=== PATIENT | female | born 1965 | race Caucasian/White ===

== ENCOUNTER 2020-04-22 08:25 | Outpatient (CLI) | payer OTHER, SELFPAY ==
--- NOTE | ~2020-04-22 | MM_ITS ---
EXAMINATION: MM screening [facility] BI w juanito HISTORY: Screening TECHNIQUE: Craniocaudal and mediolateral oblique 3-D tomosynthesis images were obtained and synthetic 2-D images were generated. CAD analysis was submitted and interpreted. COMPARISON: 03/27/2019, 03/21/2018, 03/08/2017 bilateral digital screening mammogram examinations BREAST PARENCHYMAL COMPOSITION: The breasts are almost entirely fatty. FINDINGS: There is no evidence of suspicious mass, calcification, or architectural distortion to sugg est malignancy in either breast. There has been no suspicious interval change. IMPRESSION: 1. No mammographic evidence of malignancy. 2. Recommend routine screening mammography in one year. BI-RADS Category 1: Negative Reviewed, dictated and finalized at location A.
== END 2020-04-22 08:26 | disposition home or self-care (01) ==
LOC: ANHIMG 08:29
PROVIDERS: PCP Family Medicine; Visit Provider Obstetrics & Gynecology
DX: Z12.31 Encounter for screening mammogram for malignant neoplasm of breast (principal)
CPT/HCPCS: 77063; 77067

== ENCOUNTER 2021-05-05 09:40 | Outpatient (CLI) | payer OTHER, SELFPAY ==
--- NOTE | ~2021-05-05 | MM_ITS ---
EXAMINATION: MM screening [facility] BI w juanito HISTORY: Screening mammogram TECHNIQUE: Craniocaudal and mediolateral oblique 3-D tomosynthesis images were obtained and synthetic 2-D images were generated. CAD analysis was submitted and interpreted. COMPARISON: 04/22/2020, 03/27/2019, bilateral digital screening mammogram examinations BREAST PARENCHYMAL COMPOSITION: The breasts are almost entirely fatty. FINDINGS: There is no evidence of suspicious mass, calcification, or architectural distortion to sugg est malignancy in either breast. There has been no suspicious interval change. IMPRESSION: 1. No mammographic evidence of malignancy. 2. Recommend routine screening mammography in one year. BI-RADS Category 1: Negative Reviewed, dictated and finalized at location A.
== END 2021-05-05 09:41 | disposition home or self-care (01) ==
PROVIDERS: PCP Family Medicine; Visit Provider Obstetrics & Gynecology
DX: Z12.31 Encounter for screening mammogram for malignant neoplasm of breast (principal)
CPT/HCPCS: 77063; 77067

== ENCOUNTER → 2021-07-21 11:03 | Outpatient (CLI) | payer OTHER, SELFPAY ==
--- NOTE | ~2021-07-21 | XR_ITS ---
EXAMINATION: XR cervical spine min 6V DATE: 07/21/2021 11:39 INDICATION: Cervical radiculopathy. TECHNIQUE: 6 views of cervical spine were obtained. COMPARISON: None. FINDINGS: There is 6 degrees dextrocurvature of cervical spine. There is 2 mm retrolisthesis of C5 on C6. Vertebral body heights are normal. There is moderately decreased disc height at C5-C6 and mildly decreased disc height at C6-C7. There is multilevel mild facet joint osteoarthritis. There is modera te right neural foraminal stenosis at C5-C6 and mild left neural foraminal stenosis at C4-C5. There i s mild central canal stenosis at C5-C6. No prevertebral soft tissue swelling. IMPRESSION: 1. Moderate cervical spondylosis. Reviewed, dictated and finalized at location A. SHOP MANAGER
== END ==
PROVIDERS: PCP Family Medicine; Visit Provider Chiropractor
DX: M54.12 Radiculopathy, cervical region (principal); M47.812 Spondylosis without myelopathy or radiculopathy, cervical region
CPT/HCPCS: 72052

== ENCOUNTER → 2021-08-21 07:57 | Outpatient (CLI) | payer OTHER, SELFPAY ==
[2021-08-21 20:09] LABS: SARS-CoV-2 RNA PCR Positive
== END ==
PROVIDERS: PCP Family Medicine; Visit Provider Physician Assistant
DX: U07.1 COVID-19 (principal)
CPT/HCPCS: C9803; U0003; U0005

== ENCOUNTER 2022-06-29 10:37 | Outpatient (CLI) | payer OTHER, SELFPAY ==
--- NOTE | ~2022-06-29 | MM_ITS ---
EXAMINATION: MM screening [facility] BI w juanito HISTORY: Screening TECHNIQUE: Craniocaudal and mediolateral oblique 3-D tomosynthesis images were obtained and synthetic 2-D images were generated. CAD analysis was submitted and interpreted. COMPARISON: Comparison to multiple prior studies sequentially, with oldest reviewed study dated 03/08. BREAST PARENCHYMAL COMPOSITION: Breast composition is almost entirely fatty FINDINGS: There is no evidence of suspicious mass, calcification, or architectural distortion to sugg est malignancy in either breast. There has been no suspicious interval change. IMPRESSION: 1. No mammographic evidence of malignancy. 2. Recommend routine screening mammography in one year. BI-RADS Category 1: Negative Reviewed, dictated and finalized at location A. K SAFETY INSPECTOR
== END 2022-06-29 10:38 | disposition home or self-care (01) ==
PROVIDERS: PCP Family Medicine; Visit Provider Family Medicine
DX: Z12.31 Encounter for screening mammogram for malignant neoplasm of breast (principal)
CPT/HCPCS: 77063; 77067

== ENCOUNTER → 2022-10-04 09:40 | Outpatient (CLI) | payer OTHER, SELFPAY ==
--- NOTE | ~2022-10-04 | XR_ITS ---
EXAMINATION: XR chest 2V DATE: 10/04/2022 09:56 INDICATION: Cough TECHNIQUE: PA and lateral views of the chest are obtained. COMPARISON: None available FINDINGS: The lungs are free of acute opacities. No pleural effusion or pneumothorax. The cardiomedia stinal silhouette is normal. There is mild thoracic spondylosis. IMPRESSION: 1. No acute cardiopulmonary abnormality. Reviewed, dictated and finalized at location B. EAR LOGGING ENGINEER
== END ==
PROVIDERS: PCP Family Medicine; Visit Provider Family Medicine
DX: R05.9 Cough, unspecified (principal)
CPT/HCPCS: 71046

== ENCOUNTER → 2022-11-26 13:40 | Outpatient (CLI) | payer OTHER, SELFPAY ==
--- NOTE | ~2022-11-26 | XR_ITS ---
XR lumbar spine min 4V 11/26/2022 14:12 Indication: Lumbar spondylosis with myelopathy Procedure: 5 views of the lumbar spine Comparison: 05/15/2015 Findings: There is loss of disc height at all lumbar levels. Status post spinal fusion at L4-5 with p rosthetic disc device at this level. Disc narrowing and endplate degenerative change is progressed at L2-3, L4-5 and L5-S1. There is grade 1 spondylolisthesis at L5-S1. There is levoscoliosis. No acute fracture or traumatic malalignment. Impression: 1: Progression of severe lumbar spondylosis with interval posterior spinal fusion at L4-5. Reviewed, dictated and finalized at location L. Impression: 1: Progression of severe lumbar spondylosis with interval posterior spinal fusi on at L4-5.
== END ==
PROVIDERS: PCP Family Medicine; Visit Provider Family Medicine
DX: M47.16 Other spondylosis with myelopathy, lumbar region (principal); Z98.1 Arthrodesis status
CPT/HCPCS: 72110

== ENCOUNTER 2022-12-03 08:04 | Outpatient (CLI) | payer OTHER, SELFPAY ==
--- NOTE | ~2022-12-03 | US_ITS ---
EXAMINATION: US arterial ankle brachial ind DATE: 12/03/2022 08:57 INDICATION: Diabetic with hypertension presenting with right lower limb pain TECHNIQUE: Segmental pressures and plethysmographic and Doppler waveforms of the brachial and lower e xtremity arteries were obtained. COMPARISON: None. FINDINGS: Right and left brachial artery pressures of 170 mm Hg and 194 mm Hg, respectively, are concordant (no rmal difference <= 30 mmHg). The right ankle-brachial index (FABIO) is 1.01 (normal >= 0.9-1.0). The right great toe-brachial index (TBI) is 0.48 (normal >= 0.65). Arterial Doppler waveforms are biphasic with brisk systolic upstrokes at both right posterior tibial and dorsalis pedis arteries. The left FABIO is 0.97. The left TBI is 0.27. Arterial Doppler waveforms are biphasic with brisk systol ic upstrokes at both left posterior tibial and dorsalis pedis arteries. IMPRESSION: 1. Arterial occlusive disease with mildly decreased right and moderately decreased left TBIs. Reviewed, dictated and finalized at location A. IMPRESSION: 1. Arterial occlusive disease with mildly decreased right and moderately decrea sed left TBIs.
== END 2022-12-03 08:05 | disposition home or self-care (01) ==
PROVIDERS: PCP Family Medicine; Visit Provider Family Medicine
DX: I77.9 Disorder of arteries and arterioles, unspecified (principal); M79.604 Pain in right leg; M79.605 Pain in left leg
CPT/HCPCS: 93922

== ENCOUNTER 2023-09-10 08:56 | Outpatient (CLI) | payer OTHER, SELFPAY ==
--- NOTE | ~2023-09-10 | MM_ITS ---
EXAMINATION: MM screening [facility] BI w juanito HISTORY: Screening mammogram TECHNIQUE: Craniocaudal and mediolateral oblique 3-D tomosynthesis images were obtained and synthetic 2-D images were generated. CAD analysis was submitted and interpreted. COMPARISON: 06/29/2022, 05/05/2021, 04/22/2020 BREAST PARENCHYMAL COMPOSITION: The breasts are almost entirely fatty. FINDINGS: No suspicious mass, calcification, or architectural distortion are identified in either kush ast to suggest malignancy. There has been no suspicious interval change. IMPRESSION: 1. No mammographic evidence of malignancy. 2. Recommend routine screening mammography in one year. BI-RADS Category 1: Negative Reviewed, dictated and finalized at location A. OPERATIONS DIRECTOR
== END 2023-09-10 08:57 | disposition home or self-care (01) ==
PROVIDERS: PCP Family Medicine; Visit Provider Family Medicine
DX: Z12.31 Encounter for screening mammogram for malignant neoplasm of breast (principal)
CPT/HCPCS: 77063; 77067

== ENCOUNTER 2023-12-19 10:07 | Outpatient (CLI) | payer OTHER, SELFPAY ==
--- NOTE | ~2023-12-19 | MR_ITS ---
MRI of the lumbar spine Clinical History: Worsening right sciatica Technique: Axial T2-weighted images, and sagittal T1-weighted, T2-weighted, and STIR images were acqu ired. Following intravenous administration of 20 cc MultiHance gadolinium, T1-weighted fat-sat imagin g was performed in the axial and sagittal planes. COMPARISON: 09/06/2019 Findings: No acute fracture identified. Probable mild grade 1 anterolisthesis of L5 over S1. Osseous alignment overall is similar to prior exam otherwise. Patient is status post interval posterior fusio n of the left side from L4 to L5, and interbody fusion at the L4-L5 disc space. No suspicious bone ma rrow signal abnormality seen. At L1-L2, there is advanced degenerative disc narrowing. There is mild disc bulge with moderate to se milton facet arthropathy. No central canal stenosis. No definite neural foraminal narrowing. At L2-L3, there is severe degenerative disc narrowing. Disc bulge and advanced facet arthropathy resu lt in moderate to severe spinal canal stenosis/thecal sac compression. There is severe bilateral neur al foraminal narrowing, right worse than left. L3-L4, there is severe degenerative disc narrowing. Disc bulge and possible superimposed protrusion w ith severe facet arthropathy result in severe spinal canal stenosis/thecal sac compression. There is severe bilateral neural foraminal compromise. At L4-L5, no definite disc bulge or herniation seen. There is severe facet arthropathy. No central ca nal stenosis. There is probable moderate left neural foraminal narrowing and minimal right neural for aminal narrowing. At L5-S1, there is severe degenerative disc narrowing. There is central disc protrusion with severe f acet arthropathy. There is mild to moderate central canal stenosis. There is severe bilateral neural foraminal compromise. No significant paravertebral soft tissue abnormality identified. Impression: Severe degenerative spondylosis of lumbar spine, with multilevel severe neural foraminal narrowing, a s above. There is also severe spinal canal stenosis/thecal sac compression at L2-L3 and L3-L4. Please see details above. Status post interval left-sided posterior fusion from L4 to L5 with interbody fusion device at the L4 -L5 disc space. Reviewed, dictated and finalized at location M. Impression: Severe degenerative spondylosis of lumbar spine, with multilevel severe neural foraminal narrowing, as above. There is also severe spinal canal stenosis/theca l sac compression at L2-L3 and L3-L4. Please see details above. Status post interval left-sided posterior fusion from L4 to L5 with interbody f usion device at the L4-L5 disc space.
== END 2023-12-19 10:08 ==
PROVIDERS: PCP Chiropractor; Visit Provider Chiropractor
DX: Z98.1 Arthrodesis status (principal); M47.896 Other spondylosis, lumbar region
CPT/HCPCS: 72158; A9577

== ENCOUNTER 2024-10-09 07:58 | Outpatient (CLI) | payer OTHER, SELFPAY ==
--- NOTE | ~2024-10-09 | MM_ITS ---
EXAMINATION: MM screening [facility] BI w juanito HISTORY: Screening mammogram TECHNIQUE: Craniocaudal and mediolateral oblique 3-D tomosynthesis images were obtained and synthetic 2-D images were generated. CAD analysis was submitted and interpreted. COMPARISON: 09/10/2023, 06/29/2022, 05/05/2021 BREAST PARENCHYMAL COMPOSITION:Not Dense. There are scattered areas of fibroglandular density. FINDINGS: No suspicious mass, calcification, or architectural distortion are identified in either kush ast to suggest malignancy. There has been no suspicious interval change. IMPRESSION: No mammographic evidence of malignancy. Recommend routine screening mammography in one year. BI-RADS Category 1: Negative Reviewed, dictated and finalized at location . LATOR OPERATOR
--- OUTSIDE RECORDS SUMMARY | 2024-10-09 08:01 | XMS_ITS | Continuity of Care Document ---
[facility] Organization [facility] Address [address] [place] [address] Phone Care Team Providers Care Home Economics Expert Name Role Phone Arvind Adame MD Unavailable Unavailable Procedures Procedure Date INJECTION ANESTHETIC AND/OR STERIOD, TRANS EPIDURAL LUMB OR SACRAL,, SINGLE LEVE SURGICAL TRAY LOW OSMOLAR CONTRAST (200 TO 299 MG IODI NE) Triamcinolone Acetonide Injection, 10mg Advance Directives Directive Yes / No Effective Date File Name No Information Encounters Encounter Description Practice Location Reason(s) For Visit Diagnoses Date Provider Providers [facility] [address], [place], [place], [id number], [place] tel:[phone] [facility] No Information Deep Samuels. [address], [place], [id number], [place]. tel:[phone] Referring Provider: Kwaku Srivastava, [address], [place], [address]. tel:[phone] Family History Family Member Type Diagnosis Age At Onset No Information Payers Payer name Insurance type Covered republican ID Authoriza tion(s) [facility] [id number] Social History Type Description Quantity Date Captured Comments Sex Female Smoking Status No Information Chief Complaint And Reason For Visit No Information Reason For Referral Reason For Referral No Information History Of Present Illness Encounter Date Complaint History Of Prese nt Illness No Information Functional Status Date Functional Assessmen t No Information Instructions Date Instruction Additional Infor mation No Information Assessments Type Assessment Date No Information Patient Care Teams Name Effective Dates (start - stop) Status Members No Information
--- OUTSIDE RECORDS SUMMARY | 2024-10-09 08:01 | XMS_ITS | CONTINUITY OF CARE DOCUMENT ---
Author Name darion orlando Address Unknown Organization [facility] Address [address] [place] [address] Phone [phone] Care Team Providers Care Catheter Builder Name Role Phone Alfred KWON, Jay Jay Unavailable [phone] WAYNE KWON, SETH Unavailable [phone] Nahomi KWON, Sandhya Unavailable [phone] PROBLEMS Condition Status Date Provider Notes Pre-operative respiratory examination active 1 Jay Jay Simon MD Family History of Hypertension: active Cesar Simon MD Family History of CVA or Stroke: active Radha Simon MD Abnormal EKG active Jay Jay Simon MD Hypertension active Jay Jay Simon MD Fatigue active Jay Jay Simon MD Shortness of breath active Jay Jay sandoval MD Chest pain active Jay Jay Simon MD ENCOUNTERS Date Type Provider Location Encounter Diag nosis 1 - 1 In-person encounter Office Visit [facility] Pre-operative respiratory examinationFamily History of Hypertension:Family History of CVA or Stroke:Abnormal EKGHypertensionFatigueShortness of breathChest pain VITAL SIGNS Date Observation Value Provider Body Mass Index (Ratio) 43.71 kg/m2 Cesar Simon MD blood pressure, diastolic 90 mm[Hg] Derick Bejarano blood pressure, systolic 144 mm[Hg] Desire Bejarano oxygen saturation, oximetry 96 % Simran Mcenson respiratory rate E&M 18 /min Yandy Bejarano pulse rate 74 /min Simran pinzon weight E&M 239 [lb_av] Simran pinzon height E&M 62 [in_i] Simran pinzon ALLERGIES Allergy Name Onset Date Reaction Criticality Status PENICILLIN High Criticality active HISTORY OF MEDICATION USE Medication Status Instructions Dates Provider Indications Com ments VALSARTAN 320 MG ORAL TABLET active one tab by mouth once daily Simran Bejarano TRAMADOL HCL TABLET active 50 mg tab as needed Simran Bejarano CRESTOR 20 MG ORAL TABLET active ONE TAB. DAILY Simran Bejarano OMEGA-3 FISH OIL 1000 MG ORAL CAPSULE active One tab. daily Simran Bejarano LIDOCAINE PLUS 4 % EXTERNAL CREAM active as directed Simran Bejarano PROBIOTIC ACIDOPHILUS BEADS ORAL CAPSULE active 1 tab once daily Simran Bejarano INDAPAMIDE 2.5 MG ORAL TABLET active 1 tab once dily Simran Bejarano HYDRALAZINE HCL 10 MG ORAL TABLET active 1 tab once daily Simran Bejarano BENADRYL 25 MG ORAL CAPSULE active One tab. daily Simran Bejarano ASPIRIN ADULT LOW DOSE 81 MG ORAL TABLET DELAYED RELEASE active One Tab By Mouth Daily Simran Bejarano TYLENOL EXTRA STRENGTH 500 MG ORAL TABLET active 1 tab daily as needed Simran Bejarano SOCIAL HISTORY Date Observation Value Provider social history reviewed E&M revi ewed - no changes required Jay Jay Simon MD social history E&M S moking History: P karen has never smoked. Jay Jay Simon MD number of grandchildren Jay Jay Simon MD smoking status Never smoker Simran Wesley FAMILY HISTORY Family Member Condition Father Family History of CV A or Stroke: Mother Family History of Hy pertension: Mother Family History of Di abetes: INSURANCE PROVIDERS Payer name Policy type / Coverage type [place] red alliance party ID [employer] 9 [id number] ADVANCE DIRECTIVES Name Date DISCUSSED - NO DECISION MADE TREATMENT PLAN Date Name Performer Electrophysiology: O rders: C omplete Echo (CPT-14435) S tress Regadenoson (CPT-88915) X -Ray, Chest - Routine (CPT-72941) 9 9205 HIGH Complex (CPT-08533) Jay Jay Simon MD Electrophysiology: B P today: 144/90 Her updated medication list for this problem includes: Valsartan 320 Mg Oral Tablet (Valsartan) ..... One tab by mouth once daily Indapamide 2.5 Mg Oral Tablet (Indapamide) ..... 1 tab once dily Hydralazine Hcl 10 Mg Oral Tablet (Hydralazine hcl) ..... 1 tab once daily Aspirin Adult Low Dose 81 Mg Oral Tablet Delayed Release (Aspirin) ..... One tab by mouth daily Jay Jay Simon MD Electrophysiology: H er updated medication list for this problem includes: Valsartan 320 Mg Oral Tablet (Valsartan) ..... One tab by mouth once daily Indapamide 2.5 Mg Oral Tablet (Indapamide) ..... 1 tab once dily Aspirin Adult Low Dose 81 Mg Oral Tablet Delayed Release (Aspirin) ..... One tab by mouth daily Jay Jay Simon MD Electrophysiology:po or R wave progression in precordial, possible old anterior infarct. Jay Jay Simon MD Date Name X-Ray, Chest - Routi ne Stress Regadenoson Complete Echo HISTORY OF PROCEDURES Procedure Date Procedure Name Provider Procedure Notes S tatus Stress EKG Jay Jay Simon MD comp leted Regadenoson, 4 units Neeru Nieto MD completed Cardiolite, 2 units Neeru Nieto MD completed SPECT Images Neeru Nieto MD compl eted EKG Jay Jay Simon MD comp leted FVC / MVV - [id number] Jay Jay Simon MD completed FRC - [id number] Jay Jay Simon MD com pleted SpO2 w/o 6min walk/titration Jay Jay Simon MD completed
== END 2024-10-09 07:59 | disposition home or self-care (01) ==
PROVIDERS: PCP Family Medicine; Visit Provider Family Medicine
DX: Z12.31 Encounter for screening mammogram for malignant neoplasm of breast (principal)
CPT/HCPCS: 77063; 77067

== ENCOUNTER 2024-11-02 13:40 | Outpatient (CLI) | payer OTHER, SELFPAY ==
--- NOTE | ~2024-11-02 | DEXA_ITS ---
Bone Density Report Name: NAFISA ELDER Age: 59 Sex: Female Ethnicity: White Date of : 1965 Indication: postmenopausal; screening for osteoporosis; height loss; hysterectomy; Referring Provider: CHAO WALLACE Study: Bone densitometry was performed. Exam Date: November 02, 2024 Accession number: [id number] Bone Density: Region BMD T-score Z-score Classification AP Spine(L2, L3) 1.429 3.4 4.8 Normal Femoral Neck (Left) 0.978 1.2 2.5 Normal Total Hip (Left) 1.282 2.8 3.7 Normal Femoral Neck (Right) 0.883 0.3 1.6 Normal Total Hip (Right) 1.153 1.7 2.7 Normal Total Hip Mean 1.217 2.3 3.2 Normal World Health Organization criteria for BMD impression classify patients as: Normal (T-score at or above -1.0), Osteopenia (T-score between -1.0 and -2.5), or Osteoporosis (T-score at or below -2.5). 10-year Fracture Risk: FRAX not reported because: All T-scores for Spine Total, Hip Total, Femoral Neck at or above -1.0 Clinical Information Provided by Patient: Has used the following medications: Vitamin D Has the following medical conditions: Hysterectomy Patient maximum height was 63 Menopause Age: 49 No regular weight bearing exercise Drinks caffeinated beverages Onset of menses at age 9 Number of children 2 Impression: The patient has normal bone mass. Discussion: BONE DENSITY IS ABOVE THE MINIMUM DESIRABLE LEVEL AT ALL SKELETAL SITES TESTED. This patient?s bone mineral density is above the minimum desirable level (T-score -1.0 or better) at all sites measured. The patient should follow a healthful lifestyle (good nutrition with adequate calcium and vitamin D, and appropriate weight-bearing exercise). Follow-Up: Consider repeating this study in 5 years or sooner if there is some new clinical indication. Reported by: ESHA on 11/02/2024 2:36:00 PM. Reviewed, dictated and finalized at location ACheryl ARREOLA
--- OUTSIDE RECORDS SUMMARY | 2024-11-02 15:18 | XMS_ITS | Continuity of Care Document ---
Author Organization [facility] Address [address] [place] [address] Phone Care Team Providers Care Construction Project Mgr Name Role Phone Arvind Adame MD Unavailable [...] Diagnoses Date Provider Providers Copied on [facility]counter [facility], [address], [place], [place], [address], [place] tel:[phone] [facility] No Information Deep Samuels. [address] [place], [place], [id number], [place]. tel:[phone] Referring Provider: Kwaku Srivastava, [address], [place], [address]. tel:[phone] Family History Family Member Type Diagnosis Age At Onset No Information Payers Payer name Insurance type Covered constitution party ID Authoriza tion(s) [facility] [id number] Social History Type Description Quantity Date Captured [...]
--- OUTSIDE RECORDS SUMMARY | 2024-11-02 15:18 | XMS_ITS | CONTINUITY OF CARE DOCUMENT ---
Author Name darion orlando Address Unknown Organization [facility] Address [address] [place] [address] Phone [phone] Care Team Providers Care Financial Health Counselor Name Role Phone Alfred KWON, Jay Jay Unavailable WAYNE KWON, SETH Unavailable [phone] Nahomi KWON, Sandhya Unavailable [phone] PROBLEMS Condition Status Date Provider Notes Pre-operative [...] Payer name Policy type / Coverage type [place] red democrat ID [employer] Synchronized [id number] ADVANCE DIRECTIVES Name Date DISCUSSED - NO DECISION MADE TREATMENT PLAN Date Name Performer Electrophysiology: O rders: C omplete Echo (CPT-13736) S tress Regadenoson (CPT-86216) X -Ray, Chest - Routine (CPT-08714) 9 9205 HIGH Complex (CPT-94405) Jay Jay Simon MD Electrophysiology: B P [...] MD comp leted FVC / MVV - [id number] Jay Jay Simon MD completed FRC - [id number] Jay Jay Simon MD com pleted SpO2 w/o 6min walk/titration Jay Jay Simon MD completed
== END 2024-11-02 13:41 | disposition home or self-care (01) ==
PROVIDERS: PCP Family Medicine; Visit Provider Family Medicine
DX: Z13.820 Encounter for screening for osteoporosis (principal); Z78.0 Asymptomatic menopausal state
CPT/HCPCS: 77080

== ENCOUNTER 2025-01-21 09:20 | Outpatient (CLI) | payer OTHER, SELFPAY ==
--- NOTE | ~2025-01-21 | XR_ITS ---
XR sacroiliac joints min 3V 01/21/2025 09:41 Indication: Sacroiliitis Procedure: 3 view sacroiliac joints Comparison: No prior studies for comparison. Findings: Sacroiliac joints are symmetric without significant degenerative change, ankylosis or erosi on. Sacral foramen are symmetric. There is lower lumbar spondylosis with internal fixation of L4-5. T here is severe degenerative change at L5-S1. Impression: 1: No significant abnormality of the sacroiliac joints. Reviewed, dictated and finalized at location A. Impression: 1: No significant abnormality of the sacroiliac joints.
== END 2025-01-21 09:21 | disposition home or self-care (01) ==
LOC: MICIMG 09:21
PROVIDERS: PCP Family Medicine; Visit Provider Family Medicine
DX: M46.1 Sacroiliitis, not elsewhere classified (principal)
CPT/HCPCS: 72202

== ENCOUNTER 2025-03-12 10:29 | Outpatient (CLI) | payer OTHER, SELFPAY ==
--- NOTE | ~2025-03-12 | MR_ITS ---
MRI of the lumbar spine Clinical History: Degenerative disc disease, pain Technique: Axial T2-weighted images, and sagittal T1-weighted, T2-weighted, and STIR images were acqu ired. COMPARISON: 12/19/2023 Findings: No acute fracture or subluxation seen. Osseous alignment is stable from prior exam. Stable left-sided posterior fusion from L4 to L5. No suspicious bone marrow signal abnormality seen. At L1-L2, there is advanced degenerative disc narrowing. There is mild disc bulge with moderate to ad vanced facet arthropathy. No central canal stenosis. Neural foramina are preserved. At L2-L3, there is severe degenerative disc narrowing. There is disc bulge with moderate to advanced facet arthropathy. There is moderate central canal stenosis. There is severe right neural foraminal n arrowing and moderate left neural foraminal narrowing. At L3-L4, there is severe degenerative disc narrowing. There is diffuse disc bulge and disc protrusio n with severe facet arthropathy, severe spinal canal stenosis/thecal sac compression present. There i s severe bilateral neural foraminal compromise, right worse than left. At L4-L5, there is probable prior posterior decompression. There is probable minimal disc bulge witho ut spinal canal stenosis. There is moderate left neural foraminal narrowing and minimal right neural foraminal narrowing. At L5-S1, there is degenerative distended with mild disc bulge and superimposed central disc protrusi on. There is severe facet arthropathy. There is minimal central canal stenosis. There is probable sev ere bilateral neural foraminal compromise. Paravertebral soft tissues are unremarkable. Impression: Severe multilevel degenerative spondylosis throughout the lumbar spine, as detailed above. Stable osseous alignment with stable left-sided posterior fusion from L4 to L5. Reviewed, dictated and finalized at [facility]. Impression: Severe multilevel degenerative spondylosis throughout the lumbar spine, as deta iled above. Stable osseous alignment with stable left-sided posterior fusion from L4 to L5.
== END 2025-03-12 10:30 | disposition home or self-care (01) ==
LOC: MICIMG 10:29
PROVIDERS: PCP Family Medicine; Visit Provider Physician Assistant
DX: M51.362 Other intervertebral disc degeneration, lumbar region with discogenic back pain and lower extremity pain (principal); M43.26 Fusion of spine, lumbar region; M47.26 Other spondylosis with radiculopathy, lumbar region
CPT/HCPCS: 72148